=== PATIENT | female | born 1995 | race American Indian/Alaskan Native ===

== ENCOUNTER 2021-09-16 15:36 | Emergency (ER) | payer BC ==
[2021-09-16] MEDS ORDERED: ENOXAPARIN 100 MG/1 ML INJ SUB-Q ONE (16:11)
[2021-09-16] MEDS ORDERED: ACETAMINOPHEN 500 MG TAB PO ONE (16:12)
--- NOTE | 2021-09-16 17:18 | Vascular Lab Report ---
DUPLEX DOPPLER LOWER EXTREMITY VEINS, RIGHT INDICATION / CLINICAL INFORMATION: Right lower leg pain, diagnosed with DVT recently TECHNIQUE: Duplex doppler imaging was performed through the veins of the right lower extremity using venous compression and other maneuvers. COMPARISON: None available. FINDINGS: COMMON FEMORAL VEIN: Negative. SUPERFICIAL FEMORAL VEIN: Negative. POPLITEAL VEIN: Nonocclusive DVT CALF VEINS: Occlusive DVT is seen in the peritoneal vein and nonocclusive DVT in the posterior tibial vein. ADDITIONAL FINDINGS: None. IMPRESSION: Deep venous thrombosis is seen in the popliteal and calf veins. The patient's PA was notified at time of service by the technologist. Signer Name: Humza Woo MD Signed: 09/16/2021 5:13 PM Workstation Name: [id number]
[2021-09-16 17:27] LABS: Basophils # (Auto) 0.1 K/mm3 (0.0-0.1); Eosinophils # (Auto) 0.3 K/mm3 (0.0-0.4); Eosinophils % (Auto) 4.3 % (0.0-4.3); Hematocrit 42.7 % (30.3-42.9); Hemoglobin 13.5 gm/dl (10.1-14.3); Lymphocytes # (Auto) 2.2 K/mm3 (1.2-5.4); Lymphocytes % (Auto) 30.9 % (13.4-35.0); Mean Corpuscular HGB Conc 32 % (30-34); Mean Corpuscular Volume 95 fl (79-97); Monocytes # (Auto) 0.8 K/mm3 (0.0-0.8); Monocytes % (Auto) 11.7 % (0.0-7.3); Platelet Count 157 K/mm3 (140-440); Red Blood Count 4.51 M/mm3 (3.65-5.03)
[2021-09-16 17:36] LABS: INR 1.03 (0.87-1.13)
[2021-09-16 17:37] LABS: Partial Thromboplastin Time 33.2 Sec. (24.2-36.6)
[2021-09-16 17:50] LABS: Alanine Aminotransferase 9 units/L (7-56); Albumin 4.1 g/dL (3.9-5); BUN/Creatinine Ratio 13; Blood Urea Nitrogen 10 mg/dL (7-17); Calcium 9.7 mg/dL (8.4-10.2); Hemolysis Index 11
--- NOTE | 2021-09-16 18:12 | Emergency Department Report ---
ED Extremity Problem HPI - General Chief complaint: Extremity Problem,Nontraumatic Stated complaint: DVT RT LEG Source: patient Mode of arrival: Ambulatory Limitations: No Limitations - History of Present Illness Initial comments: Patient is a 26-year-old -[place] female with no past medical history except a SINGLE END SEWER shunt and prior DVT of left upper extremity who presents to the ED with complaint of acute onset persistent persistent nontraumatic right lower leg pain for the last 5 days. Patient states that the pain has been persistent, constant since the onset. Patient states that she is not on any. Patient states that she was initially evaluated by her primary care physician who diagnosed her with right lower extremity DVT and was referred to the ED for further evaluation and treatment. Patient denies dizziness, syncope, chest pain, shortness of breath, contraceptives traumatic injury, surgery, any recent travel, fever, chills, cough, numbness and tingling or weakness of upper and lower extremities bilaterally or back pain. MD Complaint: extremity pain -: Sudden, days(s) (5) Location: right, lower extremity History of Same: No -: No myalgia, Yes arthralgia, No fever, No associated dyspnea, No associated chest pain Radiation: distal Severity scale (0 -10): 6 Quality: aching, constant Consistency: constant Improves with: nothing Worsens with: nothing Associated Symptoms: denies other symptoms, arthralgias (Posterior right calf pain). denies: chest pain, shortness of breath, fever, myalgias, rash - Related Data Previous Rx's Medication Instructions Recorded Last Taken Type Acetaminophen [Non-Aspirin Pain 500 mg PO Q6H PRN #60 tab 09/16/21 Unknown Rx Relief] Apixaban [Eliquis starter pack] 5 mg PO Q12H #80 tab 09/16/21 Unknown Rx Baclofen 20 mg PO Q12H PRN #30 tab 09/16/21 Unknown Rx traMADoL [Ultram] 50 mg PO Q6HR PRN #12 tablet 09/16/21 Unknown Rx Allergies Allergy/AdvReac Type Severity Reaction Status Date / Time amoxicillin Allergy Hives Verified 09/16/21 15:40 ED Review of Systems ROS: Stated complaint: DVT RT LEG Other details as noted in HPI Constitutional: denies: chills, fever Eyes: denies: eye pain, eye discharge, vision change ENT: denies: ear pain, throat pain Respiratory: denies: cough, shortness of breath, wheezing Cardiovascular: denies: chest pain, palpitations Endocrine: no symptoms reported Gastrointestinal: denies: abdominal pain, nausea, diarrhea Genitourinary: denies: urgency, dysuria, discharge Musculoskeletal: arthralgia (Right lower leg pain). denies: back pain, joint swelling Skin: denies: rash, lesions Neurological: denies: headache, weakness, paresthesias Psychiatric: denies: anxiety, depression Hematological/Lymphatic: denies: easy bleeding, easy bruising ED Past Medical Hx - Past Medical History Hx Deep Vein Thrombosis: Yes Additional medical history: SINGLE END SEWER Shunt - Medications Home Medications: Home Medications Medication Instructions Recorded Confirmed Last Taken Type Acetaminophen [Non-Aspirin Pain 500 mg PO Q6H PRN #60 tab 09/16/21 Unknown Rx Relief] Apixaban [Eliquis starter pack] 5 mg PO Q12H #80 tab 09/16/21 Unknown Rx Baclofen 20 mg PO Q12H PRN #30 tab 09/16/21 Unknown Rx traMADoL [Ultram] 50 mg PO Q6HR PRN #12 tablet 09/16/21 Unknown Rx ED Physical Exam - General Limitations: No Limitations General appearance: alert, in no apparent distress - Head Head exam: Present: atraumatic, normocephalic, normal inspection - Eye Eye exam: Present: normal appearance, PERRL, EOMI Pupils: Present: normal accommodation - ENT ENT exam: Present: normal exam, normal orophraynx, mucous membranes moist, TM's normal bilaterally, normal external ear exam - Neck Neck exam: Present: normal inspection, full ROM. Absent: tenderness, lymphadenopathy - Respiratory Respiratory exam: Present: normal lung sounds bilaterally. Absent: respiratory distress, wheezes, rales, stridor, chest wall tenderness, accessory muscle use, decreased breath sounds, prolonged expiratory - Cardiovascular Cardiovascular Exam: Present: regular rate, normal rhythm, normal heart sounds. Absent: systolic murmur, diastolic murmur, rubs, gallop - GI/Abdominal GI/Abdominal exam: Present: soft, normal bowel sounds. Absent: tenderness, guarding, rebound, hyperactive bowel sounds, hypoactive bowel sounds, organomegaly - Extremities Exam Extremities exam: Present: normal inspection, full ROM, tenderness (Palpable posterior right calf tenderness), normal capillary refill, calf tenderness (Posterior right calf tenderness) - Back Exam Back exam: Present: normal inspection, full ROM. Absent: tenderness, CVA tenderness (R), CVA tenderness (L), muscle spasm, paraspinal tenderness, vertebral tenderness - Neurological Exam Neurological exam: Present: alert, oriented X3, CN II-XII intact, normal gait, reflexes normal - Psychiatric Psychiatric exam: Present: normal affect, normal mood - Skin Skin exam: Present: warm, dry, intact, normal color. Absent: rash ED Course Vital Signs 09/16/21 09/16/21 15:43 15:44 Temperature 98.4 F Pulse Rate 68 Respiratory 18 Rate Blood Pressure 111/75 [Right] O2 Sat by Pulse 100 Oximetry ED Medical Decision Making - Lab Data Result diagrams: 09/16/21 17:16 09/16/21 17:16 - Radiology Data Radiology results: report reviewed, image reviewed [facility] [address] [place] [address] Vascular Lab Report Signed Patient: JAYLEN WILSON MR#: [id number] : 1995 Acct:[id number] Age/Sex: 26 / F ADM Date: 09/16/21 Loc: ED Attending Dr: Ordering Physician: ZAHIDA AVERY Date of Service: 09/16/21 Procedure(s): VL venous duplex LE RT Accession Number(s): [id number] cc: ZAHIDA AVERY DUPLEX DOPPLER LOWER EXTREMITY VEINS, RIGHT INDICATION / CLINICAL INFORMATION: Right lower leg pain, diagnosed with DVT recently TECHNIQUE: Duplex doppler imaging was performed through the veins of the right lower extremity using venous compression and other maneuvers. COMPARISON: None available. FINDINGS: COMMON FEMORAL VEIN: Negative. SUPERFICIAL FEMORAL VEIN: Negative. POPLITEAL VEIN: Nonocclusive DVT CALF VEINS: Occlusive DVT is seen in the peritoneal vein and nonocclusive DVT in the posterior tibial vein. ADDITIONAL FINDINGS: None. IMPRESSION: Deep venous thrombosis is seen in the popliteal and calf veins. The patient's PA was notified at time of service by the technologist. Signer Name: Humza Woo MD Signed: 09/16/2021 5:13 PM Workstation Name: [id number] Transcribed By: GJ Dictated By: Humza Woo MD Electronically Authenticated By: Humza Woo MD Signed Date/Time: 09/16/211712 DD/ 10 TD/TT: - Medical Decision Making This is a 26-year-old -[place] female with no past medical history except a SINGLE END SEWER shunt and prior DVT of left upper extremity who presents to the ED with complaint of acute onset persistent persistent nontraumatic right lower leg pain for the last 5 days. Patient states that the pain has been persistent, constant since the onset. Patient states that she is not on any. Patient states that she was initially evaluated by her primary care physician who diagnosed her with right lower extremity DVT and was referred to the ED for further evaluation and treatment. In the ED, patient is alert and oriented x3 and is not in any distress. Patient is not in any distress and is hemodynamically stable. Lab test results were reviewed and are all nonactionable. Right lower extremity Doppler ultrasound showed deep venous thrombosis is seen in the popliteal and calf veins. Patient was treated for pain in the ED and also given initial Lovenox 100 mg subcutaneous injection in the ED and also treated for pain. On reevaluation, patient's pain is well controlled medication. Patient will discharge home on prescription of pain medications and Eliquis 5 mg to be taken as directed. Patient was advised to follow-up with her primary care physician in 7 to 10 days for reevaluation or return to the ED immediately if symptoms get worse. - Differential Diagnosis DVT, Muscle strain, Muscle spasm; Critical care attestation.: If time is entered above; I have spent that time in minutes in the direct care of this critically ill patient, excluding procedure time. ED Disposition Clinical Impression: Pain of right lower extremity Deep vein thrombosis (DVT) of right lower extremity Qualifiers: Affected thrombotic vein of extremity: popliteal Chronicity: acute Qualified Code(s): I82.431 - Acute embolism and thrombosis of right popliteal vein Disposition: HOME / SELF CARE / HOMELESS Is pt being admited?: No Does the pt Need Aspirin: No Condition: Stable Instructions: Venous Thromboembolism Prevention, Deep Vein Thrombosis Additional Instructions: All lab test results were reviewed and are all nonactionable. The right lower leg Doppler ultrasound showed deep venous thrombosis is seen in the popliteal and calf veins. Therefore take medication as advised, and plenty of fluids, follow-up with your primary care physician in 7 to 10 days for reevaluation. Return to the ED immediately if your symptoms get worse. Prescriptions: Baclofen 20 mg PO Q12H PRN #30 tab PRN Reason: Muscle Spasm Apixaban [Eliquis starter pack] 5 mg PO Q12H #80 tab Acetaminophen [Non-Aspirin Pain Relief] 500 mg PO Q6H PRN #60 tab PRN Reason: Pain , Severe (7-10) traMADoL [Ultram] 50 mg PO Q6HR PRN #12 tablet PRN Reason: Pain Referrals: AISHA ELMORE MD [Referring] - 3-5 Days Forms: Work/School Release Form(ED) Time of Disposition: 18:11 Print Language: ALBANIAN
[2021-09-16 18:51] VITALS: BP 110/80
== END 2021-09-16 18:54 | disposition home or self-care (01) ==
LOC: ED 15:36
DX: I82.4Z1 Acute embolism and thrombosis of unspecified deep veins of right distal lower extremity (principal); Z79.01 Long term (current) use of anticoagulants; Z79.899 Other long term (current) drug therapy; Z88.1 Allergy status to other antibiotic agents
CPT/HCPCS: 36415; 80053; 85025; 85610; 85730; 93971; 96372; 99284; J1650; 90471

== ENCOUNTER 2021-09-23 15:07 | Emergency (ER) | payer BC ==
[2021-09-23 15:57] VITALS: BP 102/59
--- NOTE | 2021-09-23 16:19 | Emergency Department Report ---
ED Abdominal Pain HPI - General Chief Complaint: Nausea/Vomiting/Diarrhea Stated Complaint: VOMITING/STOMACH PAIN Time Seen by Provider: 09/23/21 16:07 Source: patient Mode of arrival: Ambulatory Limitations: No Limitations - History of Present Illness Initial Comments: 26-year-old female with a past medical history of hydrocephalus status post SUPERVISOR POWDERED SUGAR shunt, and recent diagnosis of right leg DVT currently on Eliquis presents to the ER today with complaints of severe lower abdominal pain. Patient states that symptoms started this morning around 10 AM while she was laying down. She states that the pain has been constant and getting worse. She reports associated vomiting x4 and diarrhea x3. She denies any hematemesis, coffee- ground emesis. She denies any hematochezia or melena. She denies any UTI symptoms or any abnormal vaginal bleeding or discharge. She denies any fever or chills. She denies any ill contacts or recent travel or recent antibiotic use. Her last menstrual cycle was September 07, 2021. Is not currently on any control. Denies any abdominal surgeries in the past. MD Complaint: abdominal pain -: This morning (10 am ) Severity scale (0 -10): 8 - Related Data Previous Rx's Medication Instructions Recorded Last Taken Type Acetaminophen [Non-Aspirin Pain 500 mg PO Q6H PRN #60 tab 09/16/21 Unknown Rx Relief] Apixaban [Eliquis starter pack] 5 mg PO Q12H #80 tab 09/16/21 Unknown Rx Baclofen 20 mg PO Q12H PRN #30 tab 09/16/21 Unknown Rx traMADoL [Ultram] 50 mg PO Q6HR PRN #12 tablet 09/16/21 Unknown Rx Allergies Allergy/AdvReac Type Severity Reaction Status Date / Time amoxicillin Allergy Hives Verified 09/16/21 15:40 ED Review of Systems ROS: Stated complaint: VOMITING/STOMACH PAIN Other details as noted in HPI ED Past Medical Hx - Past Medical History Hx Deep Vein Thrombosis: Yes Additional medical history: SUPERVISOR POW[employer] SUGAR Shunt - Medications Home Medications: Home Medications Medication Instructions Recorded Confirmed Last Taken Type Acetaminophen [Non-Aspirin Pain 500 mg PO Q6H PRN #60 tab 09/16/21 Unknown Rx Relief] Apixaban [Eliquis starter pack] 5 mg PO Q12H #80 tab 09/16/21 Unknown Rx Baclofen 20 mg PO Q12H PRN #30 tab 09/16/21 Unknown Rx traMADoL [Ultram] 50 mg PO Q6HR PRN #12 tablet 09/16/21 Unknown Rx ED Physical Exam - General Limitations: No Limitations ED Course Vital Signs 09/23/21 15:56 Temperature 98.3 F Pulse Rate 55 L Respiratory 18 Rate Blood Pressure 102/59 [Right] O2 Sat by Pulse 99 Oximetry ED Medical Decision Making - Lab Data Result diagrams: 09/23/21 17:15 09/23/21 Unknown - Medical Decision Making 2005: Labs reviewed and shows no significant abnormalities. Urine and urinalysis was resulted maybe about 10 minutes ago. mold technician was notified of negative test and to come get patient for CT but now patient is requesting to leave. Patient states that she does not want to wait any longer, she has been here too long wants to leave. I did discuss with patient the reason for doing CT scan which was to rule out any acute emergent conditions especially since she is continued to have pain and requested additional pain medication. But patient states that she does not want to wait any longer. Risk of not doing the test was discussed with patient. Patient expressed understanding and agreed to sign AMA. [Courtney Millan] Has decided to leave our facility AGAINST MEDICAL ADVICE. I have assessed the patient's ability to make informed decision and it is my opinion at this time that the patient has the medical decision capacity to comprehend information regarding current medical condition and appreciates the impact of the disease or condition and the consequences of various options for treatment including foregoing treatment. The patient possesses the ability to evaluate all treatment options, compared to risk and benefits of each option, communicate choice in a consistent manner over time and is able to make rational choices. I have explained to the patient further testing, treatment and evaluation I would like to perform during the current emergency department visit as well as any possible alternatives that could be accomplished in a timely manner. I have outlined the possible risk of foregoing any or all of these interventions and the patient understands and acknowledges that the decision to leave may result in undesirable consequences such as , permanent disability and/or loss of current lifestyle. Even though leaving AMA is not ideal, I have instructed the patient to follow any discharge instructions given take any medications prescribed and resume care as soon as possible with another provider. Additionally, we clearly stated that the patient is welcome to return at any time to continue at our facility. Critical care attestation.: If time is entered above; I have spent that time in minutes in the direct care of this critically ill patient, excluding procedure time. ED Disposition Clinical Impression: Lower abdominal pain Disposition: LEFT AGAINST MEDICAL ADVICE Is pt being admited?: No Condition: Stable Referrals: GINA RUBIO MD [Primary Care Provider] - 3-5 Days Forms: AMA Form
[2021-09-23] MEDS: SODIUM CHLORIDE 0.9% 1000 ML 1,000 ML IV ONE (16:36)
[2021-09-23] MEDS: MORPHINE 4 MG/1 ML INJ IV ONE ×2 (16:37→19:34)
[2021-09-23] MEDS: ONDANSETRON 4 MG/2 ML INJ IV ONE (16:37)
[2021-09-23 17:55] LABS: Basophils % (Auto) 0.6 % (0.0-1.8); Eosinophils # (Auto) 0.3 K/mm3 (0.0-0.4); Eosinophils % (Auto) 3.8 % (0.0-4.3); Hematocrit 39.9 % (30.3-42.9); Lymphocytes # (Auto) 2.5 K/mm3 (1.2-5.4); Lymphocytes % (Auto) 36.7 % (13.4-35.0); Mean Corpuscular HGB Conc 33 % (30-34); Mean Corpuscular Volume 96 fl (79-97); Monocytes # (Auto) 0.8 K/mm3 (0.0-0.8); Monocytes % (Auto) 12.5 % (0.0-7.3); Platelet Count 167 K/mm3 (140-440); Red Blood Count 4.16 M/mm3 (3.65-5.03); Red Cell Distribution Width 13.4 % (13.2-15.2)
[2021-09-23 18:18] LABS: Alanine Aminotransferase 22 units/L (7-56); Albumin 3.7 g/dL (3.9-5); Blood Urea Nitrogen 8 mg/dL (7-17); Calcium 8.7 mg/dL (8.4-10.2); Hemolysis Index 6
[2021-09-23 18:21] LABS: BUN/Creatinine Ratio 11
[2021-09-23 19:26] LABS: Bilirubin,Urine NEG (Negative); Blood,Urine NEG (Negative); Color,Urine Yellow (Yellow); Mucus,Urine FEW /HPF; Protein,Urine <15 mg/dL mg/dL (Negative); Urobilinogen,Urine < 2.0 mg/dL (<2.0); WBC,Urine < 1.0 /HPF (0.0-6.0)
[2021-09-23 19:47] LABS: HCG Qualitative,Urine Negative (Negative)
== END 2021-09-23 20:07 | disposition left against medical advice (07) ==
LOC: ED 15:07
DX: R10.30 Lower abdominal pain, unspecified (principal); Z88.1 Allergy status to other antibiotic agents; Z79.01 Long term (current) use of anticoagulants; Z98.890 Other specified postprocedural states; Z79.899 Other long term (current) drug therapy
CPT/HCPCS: 36415; 80053; 81001; 81025; 83690; 85025; 96361; 96374; 96375; 96376; 99283; J2270; J2405; J7030; Q0162